=== PATIENT | female | born 1965 | race Caucasian/White ===

== ENCOUNTER 2020-02-04 06:55 | Day surgery (SDC) | payer BC ==
[2020-01-27 15:47] VITALS: BMI 38.3
[2020-02-04] MEDS ORDERED: MIDAZOLAM HCL 2 MG/2 ML SINGLE DOSE VIAL ONE (08:03)
[2020-02-04] MEDS ORDERED: ONDANSETRON 4 MG/2 ML VIAL ONE (08:30)
[2020-02-04] MEDS ORDERED: KETOROLAC TROMETHAMINE 30 MG/1 ML VIAL ONE (08:30)
[2020-02-04] MEDS ORDERED: ceFAZolin SODIUM 1 GM VIAL ONE (08:30)
[2020-02-04] MEDS ORDERED: DEXAMETHASONE SOD PHOSPHATE 4 MG/1 ML VIAL ONE (08:30)
[2020-02-04] MEDS ORDERED: PROPOFOL 20 ML ONE (09:25)
[2020-02-04] MEDS ORDERED: ACETAMINOPHEN 1000 MG/100 ML VIAL (NON FORMULARY) IVPB ONE (10:06)
[2020-02-04] MEDS ORDERED: ONDANSETRON 4 MG/2 ML VIAL IVPUSH PRN (10:06)
[2020-02-04] MEDS ORDERED: oxyCODONE HCL 5 MG TABLET PO PRN (10:06)
[2020-02-04] MEDS ORDERED: LACTATED RINGERS SOLUTION 1,000 ML IV SCH (10:15)
--- NOTE | 2020-02-04 10:25 | OP ---
DATE OF OPERATION: 02/04/2020 PREOPERATIVE DIAGNOSES: 1. 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 2. 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 POSTOPERATIVE DIAGNOSES: 1. 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 2. 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 OPERATIVE PROCEDURE: 1. Arthrodesis with autograft of right index finger distal interphalangeal joint. 2. Right ring finger mass excision. 3. Right ring finger distal interphalangeal joint debridement. 4. Excision of bone spur. SURGEON: Jerson Forman MD [employer] ALIGN[employer] SPECIALIST: RONNELL Robb ANESTHESIA: Local with sedation. COMPLICATIONS: None. ESTIMATED BLOOD LOSS: Minimal. INDICATION FOR PROCEDURE: The patient presented with the above findings indicated for operative treatment. Risks, benefits, alternatives were discussed with patient at length. Proper informed consent was obtained. DESCRIPTION OF PROCEDURE: After preoperative identification of the patient and correct operative site, patient was brought to the operating room and placed on operating room table supine with all bony prominences well padded. Right upper extremity was prepped and draped in the usual sterile fashion. Well-padded tourniquet was placed over the sterile prep. Intravenous antibiotics were given. Timeout procedure was performed. Right upper extremity was exsanguinated with an Esmarch bandage. Tourniquet was inflated to 250 mmHg. An H-shaped incision was made over the index finger dorsal aspect of the distal interphalangeal joint. Incision was taken sharply through the skin all the way down to the joint level, and soft tissue was elevated off the distal interphalangeal joint. Severe arthrosis and multiple bone spurs, complete eburnation of the articular cartilage, and loose bodies were found. This was debrided. The articular surface that was remaining was removed down to the level of healthy cancellous bleeding bone. A guidewire from an Arthrex headless 2-mm compression screw was used and placed across the arthrodesis site. Proper position was confirmed radiographically as well as clinically. A small incision was made over the guidewire to the tip of the finger, and the guidewire was overreamed with the reamer. With compression held and the joint packed with autograft bone grafting from the reaming, the joint was compressed with an Arthrex 2-mm x 26-mm headless compression screw. This provided secure stable fixation of the arthrodesis, along with excellent positioning confirmed radiographically again as well as clinically. Wound was irrigated and repaired with 5-0 fast-absorbing plain gut suture as well as Dermabond. A T-shaped incision was made over the ring finger distal interphalangeal joint over the mass. The incision was taken sharply through the skin, with sharp dissection through subcutaneous tissues, elevating the tissue off of the mass, which appeared to be a ganglion cyst, distal interphalangeal joint. This was excised in whole and sent for pathologic evaluation. The joint was found to be arthritic with a large bone spur. This was debrided. Synovitis was debrided and the bone spur was excised. Wound was irrigated and repaired with 5-0 fast-absorbing plain gut suture as well as Dermabond. Sterile dressings were applied. Splint was placed. Patient was reversed from anesthesia and went to the recovery room in stable condition. Ryan Noyola, the nurse practitioner physicians assistant, was integral throughout the procedure. Procedure could not have been performed without a skilled operative nurse practitioner physicians assistant. He was especially integral during placement of the arthrodesis screw and holding position of the arthrodesis. This could not have been performed without a skilled operative nurse practitioner physicians assistant. Rylie [id number]
[2020-02-04 11:00] VITALS: TEMP 98
[2020-02-04 11:42] VITALS: BP 124/70; PULSE 60
--- NOTE | 2020-02-06 18:14 | PATH ---
Surgical Pathology Report Patient Name: CHYNA HARTMAN [facility]. Rec. #: [id number] /Age/Gender: 1965 (Age: 54) / F Account: [id number] [facility] Taken: 02/04/2020 Received: 02/04/2020 Reported: 02/06/2020 Physicians: Jerson Forman M.D. Specimen(s) Received MASS RIGHT 4TH FINGER Clinical History Right ring finger cyst, right index finger arthritis Final Diagnosis MASS, RIGHT FOURTH FINGER, EXCISION: CONSISTENT WITH GANGLION CYST. Electronically Signed Bob Main M.D. Gross Description Received in formalin labeled "mass right fourth finger," is a 0.5 x 0.5 x 0.2 cm shanks portion of soft tissue. The specimen is submitted in toto in one cassette. /02/05/2020 [facility]/02/05/2020
== END 2020-02-04 11:42 | disposition home or self-care (01) ==
LOC: FASU 06:55
PROVIDERS: ATTEND Orthopaedic Surgery Hand Surgery
PROC: 0LB70ZZ Excision of Right Hand Tendon, Open Approach (ICD-10-PCS; 2020-02-04)
PROC: 0RGW07Z Fusion of Right Finger Phalangeal Joint with Autologous Tissue Substitute, Open Approach (ICD-10-PCS; principal; 2020-02-04 08:47)
DX: M19.041 Primary osteoarthritis, right hand (principal); M67.441 Ganglion, right hand; M65.841 Other synovitis and tenosynovitis, right hand; M25.741 Osteophyte, right hand
CPT/HCPCS: 73140-TC-RT-FY; 84703; 88304-TC; 94760

== ENCOUNTER 2023-01-17 10:02 | Day surgery (SDC) | payer BC ==
[2023-01-11 18:12] VITALS: BMI 38.3
[2023-01-17 10:20] VITALS: PULSE 67
[2023-01-17] MEDS ORDERED: LIDOCAINE HCL 1%, 10 MG/ML (20ML VIAL) ONE (10:24)
[2023-01-17] MEDS ORDERED: BUPIVACAINE HCL/PF 0.25% (2.5MG/ML) 10 ML VIAL ONE (10:24)
[2023-01-17] MEDS ORDERED: MIDAZOLAM HCL 2 MG/2 ML SINGLE DOSE VIAL ONE (10:44)
[2023-01-17] MEDS ORDERED: PROPOFOL 20 ML ONE (10:44)
[2023-01-17] MEDS ORDERED: GLYCOPYRROLATE 0.2 MG/1 ML VIAL ONE (10:45)
[2023-01-17] MEDS ORDERED: ONDANSETRON 4 MG/2 ML VIAL ONE (10:45)
[2023-01-17] MEDS ORDERED: ceFAZolin SODIUM 1 GM VIAL ONE (11:40)
[2023-01-17 12:56] VITALS: RESP 16; TEMP 98.4
[2023-01-17 13:43] VITALS: BP 100/48
== END 2023-01-17 13:45 | disposition home or self-care (01) ==
LOC: FASU 10:02
PROVIDERS: ATTEND Orthopaedic Surgery Hand Surgery
PROC: 0RGX07Z Fusion of Left Finger Phalangeal Joint with Autologous Tissue Substitute, Open Approach (ICD-10-PCS; principal; 2023-01-17 11:44)
DX: M19.042 Primary osteoarthritis, left hand (principal)
CPT/HCPCS: 73130-TC-LT-FY; C1713